=== PATIENT | female | born 1995 | race Two or more races ===

== ENCOUNTER 2018-07-12 17:15 | Inpatient (IN) | payer OTHER ==
[2018-07-12] MEDS ORDERED: AMPICILLIN SODIUM 2 GM VIAL ONE (18:07)
[2018-07-12] MEDS ORDERED: ELECTROLYTE-148 SOLN 500 ML IV ONE ×2 (18:10→19:10)
[2018-07-12 19:06] LABS: BASO % 0.2 % (0-2.0); HEMATOCRIT 35.3 % (32.4-45.2); HEMOGLOBIN 11.6 GM/dL (10.7-15.3); LYMPH % 15.5 % (8-40); MCH 27.3 pg (25.7-33.7); MCHC 32.9 g/dl (32.0-36.0); MEAN CELL VOLUME 83.1 fl (80-96); MONO % 6.9 % (3.8-10.2); NEUT % 73.4 % (42.8-82.8); PLATELET COUNT 315 K/MM3 (134-434); RBC 4.25 M/mm3 (3.60-5.2); RDW 14.8 % (11.6-15.6); WHITE BLOOD COUNT 10.3 K/mm3 (4.0-10.0)
[2018-07-12 19:14] LABS: INR 0.92 (0.83-1.09); PROTHROMBIN TIME (PATIENT) 10.8 SEC (9.7-13.0)
[2018-07-12 19:17] LABS: ACTIVATED PTT 30.5 SECONDS (25.2-36.5)
[2018-07-12 19:29] LABS: BILIRUBIN,TOTAL 0.3 mg/dL (0.2-1); CALCIUM 8.8 mg/dL (8.5-10.1); CREATININE 0.5 mg/dL (0.55-1.3); POTASSIUM 4.2 mmol/L (3.5-5.1); TOT PROT 7.4 g/dl (6.4-8.2)
[2018-07-12 20:06] LABS: EPI CELLS 2.7 /HPF (0-5/HPF); PH,URINE 6.5 (5.0-8.0); URINE APPEARANCE CLEAR; URINE BACTERIA 13.2 /hpf (NEGATIVE); URINE BILIRUBIN NEGATIVE (NEGATIVE); URINE CASTS 7 /lpf (0-8); URINE COLOR YELLOW; URINE GLUCOSE (UA) NEGATIVE (NEGATIVE); URINE KETONE NEGATIVE (NEGATIVE); URINE LEUK ESTERASE 1+ (NEGATIVE); URINE NITRITE NEGATIVE (NEGATIVE); URINE PROTEIN NEGATIVE (NEGATIVE); URINE RBC 2 /hpf (0-4); URINE UROBILINOGEN 0.2 mg/dL (0.2-1.0); URINE WBC 12 /hpf (0-5)
[2018-07-12 20:45] LABS: METHADONE, UR NEGATIVE ng/ml (CUTOFF=300); OPIATES, URI NEGATIVE ng/ml (CUTOFF=300); PHENCYCLIDINE,URINE NEGATIVE ng/ml (CUTOFF=25); URINE BARBITURATES NEGATIVE ng/ml (CUTOFF=200); URINE BENZODIAZEPINES NEGATIVE ng/ml (CUTOFF=200)
[2018-07-12 20:46] LABS: COCAINE, UR NEGATIVE ng/ml (CUTOFF=300); URINE AMPHETAMINES NEGATIVE ng/ml (CUTOFF=500)
[2018-07-12] MEDS ORDERED: AMPICILLIN - 2 GM in SODIUM CHLORIDE 100 ML IVPB ONE (21:00)
[2018-07-12 22:29] VITALS: BMI 31.8
[2018-07-12] MEDS ORDERED: BUTORPHANOL TARTRATE 2 MG/ML VIAL ONE (22:46)
[2018-07-12] MEDS ORDERED: PROMETHAZINE HCL 25 MG/1 ML VIAL ONE (22:46)
[2018-07-12] MEDS ORDERED: BUTORPHANOL TARTRATE 1 MG/ML VIAL IVPB ONE (23:01)
[2018-07-12] MEDS ORDERED: PROMETHAZINE HCL 25 MG/1 ML VIAL IVPUSH ONE (23:01)
--- NOTE | 2018-07-12 23:01 | HP ---
Admitting History and Physical - Admission Chief Complaint: labor pains History of Present Illness: 22 y/o primip comes for labor eval and is 4-5 cm, ctx irregular. No issues and doing well, gbs proph given.. states she is a pt of an off site clinic. 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: Alzheimer's, CVA, Dementia, Migraine, Multiple Sclerosis, Peripheral Neuropathy, Parkinson's, Seizure, Syncope, TIA, Vertigo, Other Cardiovascular: No: AFIB, Aneurysm, Aortic Insufficiency, Aortic Stenosis, CAD, CHF, Deep Vein Thrombosis, HTN, Hyperlipdemia, MT, Mitral Insufficiency, Mitral Stenosis, Murmur, Pulmonary Hypertension, Other Pulmonary: No: Asthma, Bronchitis, Cancer, COPD, O2 Dependent, Pneumonia, Previously Intubated, Pulmonary Embolus, Pulmonary Fibrosis, Sleep Apnea, Other Gastrointestinal: No: Ascites, Cancer, Constipation, Crohn's Disease, Diverticulitis, Diverticulosis, Esophageal Varices, Gastritis, GERD, GI Bleed, Hemorrhoids, Hiatal Hernia, Inflamatory Bowel Disease, Irritable Bowel Disease, Pancreatitis, Peptic Ulcer Disease, Ulcerative Colitis, Other Hepatobiliary: No: Cirrhosis, Cholelithiasis, Cholecystitis, Choledocholithiasis , Hepatitis A, Hepatitis B, Hepatitis C, Other Renal/: No: Renal Failure, Renal Inusuff, BPH, Cancer, Hematuria, Hemodialysis , Neurogenic Bladder, Renal Calculi, UTI, Other Reproductive: No: Ectopic , Endometriosis, Fibroids, PID, Polycystic Ovary Syndrome, Postmenopausal, Other ...: 1 ...Para: 0 Heme/Onc: No: Anemia, B12 Deficiency, Bleeding Disorder, Cancer, Current Chemotherapy, Current Radiation Therapy, Hemochromatosis, Hypercoaguable State, Myeloproliferative Synd, Sickle Cell Disease, Sickle Cell Trait, Thrombocytopenia, Other Infectious Disease: No: AIDS, C-Diff, Herpes Zoster, HIV, MRSA, STD's, Tuberculosis, VREF, Other Psych: No: Addictions, Anxiety, Bipolar, Depression, Panic, Psychosis, Schizophrenia, Other Musculoskeletal: No: Bursitis, Chronic low back pain, Hemiparesis, Hemiplegia, Osteoarthritis, Paraplegia, Other Rheumatology: No: Fibromyalgia, Gout, Lupus, Rheumatoid Arthritis, Sarcoidosis, Vasculitis, Other ENT: No: Allergic Rhinitis, Sinusitis, Other Endocrine: No: Remi's Disease, Rosette's Disease, Diabetes Insipidus, Diabetes Mellitus, Hyperparathyroidism, Hyperthyroidism, Hypothyroidism, Osteopenia, SIADH, Other Dermatology: No: Basal Cell, Cellulitis, Eczema, Melanoma, Psoriasis, Squamous Cell, Other - Smoking History Smoking history: Never smoked Have you smoked in the past 12 months: No - Alcohol/Substance Use Hx Alcohol Use: No Home Medications - Allergies Allergies/Adverse Reactions: Allergies Allergy/AdvReac Type Severity Reaction Status Date / Time No Known Allergies Allergy Verified 07/12/18 18:32 - Home Medications Home Medications: Ambulatory Orders Tablet 1 tab PO DAILY 07/12/18 Review of Systems - Review of Systems Constitutional: reports: No Symptoms Eyes: reports: No Symptoms HENT: reports: No Symptoms Neck: reports: No Symptoms Cardiovascular: reports: No Symptoms Respiratory: reports: No Symptoms Gastrointestinal: reports: No Symptoms Genitourinary: reports: No Symptoms Breasts: reports: No Symptoms Reported Musculoskeletal: reports: No Symptoms Integumentary: reports: No Symptoms Neurological: reports: No Symptoms Endocrine: reports: No Symptoms Hematology/Lymphatic: reports: No Symptoms Physical Examination Vital Signs: Vital Signs Temperature 98.4 F 07/12/18 22:00 Pulse Rate 65 07/12/18 22:00 Respiratory Rate 20 07/12/18 22:00 Blood Pressure 123/61 07/12/18 22:00 O2 Sat by Pulse Oximetry (%) Constitutional: Yes: Well Nourished Eyes: Yes: WNL HENT: Yes: WNL Neck: Yes: WNL Cardiovascular: Yes: WNL Respiratory: Yes: WNL Gastrointestinal: Yes: WNL ...Rectal Exam: Yes: WNL Renal/: Yes: WNL Breast(s): Yes: WNL Musculoskeletal: Yes: WNL Integumentary: Yes: WNL Neurological: Yes: WNL Labs: CBC, BMP 07/12/18 18:20 07/12/18 18:20 Assessment/Plan as above will admit abx expectant management
[2018-07-12] MEDS ORDERED: ELECTROLYTE-148 SOLN 1,000 ML IV SCH (23:15)
[2018-07-13] MEDS: AMPICILLIN - 1 GM in SODIUM CHLORIDE 100 ML IVPB SCH ×2 (01:00→06:05)
[2018-07-13] MEDS ORDERED: AMPICILLIN SODIUM 1 GM VIAL ONE (01:14)
[2018-07-13] MEDS ORDERED: BUTORPHANOL TARTRATE 1 MG/ML VIAL IVPB ONE (02:30)
[2018-07-13] MEDS ORDERED: PROMETHAZINE HCL 25 MG/1 ML VIAL IVPB ONE (02:30)
[2018-07-13] MEDS ORDERED: BUTORPHANOL TARTRATE 2 MG/ML VIAL ONE (02:43)
[2018-07-13] MEDS ORDERED: PROMETHAZINE HCL 25 MG/1 ML VIAL ONE (02:43)
[2018-07-13] MEDS ORDERED: LIDOCAINE HCL 1% PRESERVATIVE FREE - 30ML VIAL ONE (03:06)
[2018-07-13] MEDS ORDERED: OXYTOCIN 20 UNITS in 0.9% NS 20 UNIT/1,000 ML INFUS.BAG IV ONE (03:06)
--- NOTE | 2018-07-13 04:11 | PN ---
Ante-Partal Exam - Subjective Vital Signs: Vital Signs Temperature 98.4 F 07/13/18 02:00 Pulse Rate 78 07/13/18 03:00 Respiratory Rate 20 07/13/18 03:00 Blood Pressure 124/58 L 07/13/18 03:00 O2 Sat by Pulse Oximetry (%) Headache: No Visual changes: No Right upper quadrant pain: No - Contractions Contractions: Yes Regularity: Regular Intensity: Mild/Mod Monitor Mode: External - Exam during Labor Category: I Monitor Accelerations: Present Monitor Decelerations: None Exam: Vaginal Dilatation (cm): 10 Effacement (%): 100 Amniotic Membrane Status: Intact Nitrazine Test: Positive Amniotic Fluid: Clear Presentation: Vertex Station: 0 - Assessment/Plan Assessment/Plan: as above [id number]
--- NOTE | 2018-07-13 04:42 | PN ---
Ante-Partal Exam - Subjective Vital Signs: Vital Signs Temperature 98.4 F 07/13/18 02:00 Pulse Rate 94 H 07/13/18 04:00 Respiratory Rate 20 07/13/18 04:00 Blood Pressure 134/78 07/13/18 04:00 O2 Sat by Pulse Oximetry (%) Headache: No Visual changes: No Right upper quadrant pain: No - Contractions Contractions: No Regularity: Regular Intensity: Mild/Mod Monitor Mode: External - Exam during Labor Heart Rate: 150 Variability: Moderate Category: I Monitor Accelerations: Present Monitor Decelerations: None Exam: Vaginal Dilatation (cm): 10 Effacement (%): 100 Amniotic Membrane Status: Ruptured Nitrazine Test: Positive Amniotic Fluid: Clear Presentation: Vertex Station: 0 (pt to start pushing)
[2018-07-13] MEDS ORDERED: BISACODYL 10 MG SUPP.RECT RC PRN (05:03)
[2018-07-13] MEDS ORDERED: WITCH HAZEL 50% (TUCKS) 40 PAD/JAR PAD TP PRN (05:03)
[2018-07-13] MEDS ORDERED: BENZOCAINE 28 GM HEMORRHOIDAL OINTMENT TP PRN (05:03)
[2018-07-13] MEDS ORDERED: ACETAMINOPHEN 325 MG TABLET (FP) PO PRN (05:03)
[2018-07-13] MEDS ORDERED: BENZOCAINE 20% 57 GM BOTTLE TP PRN (05:03)
[2018-07-13] MEDS ORDERED: METHYLERGONOVINE MALEATE 0.2 MG/1 ML AMP IM PRN (05:03)
[2018-07-13] MEDS ORDERED: IBUPROFEN 600 MG TABLET (FP) PO PRN (05:03)
--- NOTE | 2018-07-13 05:04 | PN ---
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
[2018-07-13] MEDS ORDERED: OXYTOCIN 20 UNITS in 0.9% NS 20 UNIT/1,000 ML INFUS.BAG IV SCH (05:15)
[2018-07-13] MEDS ORDERED: TUBERCULIN PPD 5 TU/0.1ML SYRINGE (IN PATIENT USE ONLY) ID ONE (10:00)
[2018-07-14 04:11] LABS: HBsAG SCREEN Negative (Negative)
[2018-07-14 07:14] LABS: RUBELLA IgG ANTIBODY 9.07 index (Immune >0.99)
--- NOTE | 2018-07-14 07:52 | PN ---
Post Progress Note Type of Delivery: Vital Signs: Vital Signs Temperature 98.0 F 07/14/18 06:00 Pulse Rate 65 07/14/18 06:00 Respiratory Rate 18 07/14/18 06:00 Blood Pressure 131/57 L 07/14/18 06:00 O2 Sat by Pulse Oximetry (%) Uterus: Yes: Fundus Firm Incision: Yes: Dressing dry and intact Abdomen/GI: Yes: Abdomen soft Lochia: Yes: Rubra Lochia, amount: Small Extremities: Yes: Calves non-tender Perineum: Yes: Intact Activity: Ambulating - Labs Labs: CBC WBC 10.3 K/mm3 (4.0-10.0) H 07/12/18 18:20 RBC 4.25 M/mm3 (3.60-5.2) 07/12/18 18:20 Hgb 11.6 GM/dL (10.7-15.3) 07/12/18 18:20 Hct 35.3 % (32.4-45.2) 07/12/18 18:20 MCV 83.1 fl (80-96) 07/12/18 18:20 MCH 27.3 pg (25.7-33.7) 07/12/18 18:20 MCHC 32.9 g/dl (32.0-36.0) 07/12/18 18:20 RDW 14.8 % (11.6-15.6) 07/12/18 18:20 Plt Count 315 K/MM3 (134-434) 07/12/18 18:20 MPV 8.0 fl (7.5-11.1) 07/12/18 18:20 Absolute Neuts (auto) 7.6 K/mm3 (1.5-8.0) 07/12/18 18:20 Neutrophils % 73.4 % (42.8-82.8) 07/12/18 18:20 Lymphocytes % 15.5 % (8-40) 07/12/18 18:20 Monocytes % 6.9 % (3.8-10.2) 07/12/18 18:20 Eosinophils % 4.0 % (0-4.5) 07/12/18 18:20 Basophils % 0.2 % (0-2.0) 07/12/18 18:20 Nucleated RBC % 0 % (0-0) 07/12/18 18:20 Assessment/Plan 22yo s/p , PPD#1 Routine PP care OOB, ambulate Labs pending Anticipate d/c to home PPD#2 Marcy Toney MD
[2018-07-14 08:08] LABS: BASO % 0.2 % (0-2.0); EOS % 4.2 % (0-4.5); HEMOGLOBIN 10.1 GM/dL (10.7-15.3); LYMPH % 21.8 % (8-40); MCH 27.1 pg (25.7-33.7); MCHC 32.6 g/dl (32.0-36.0); MEAN PLT VOLUME 7.8 fl (7.5-11.1); MONO % 7.6 % (3.8-10.2); NEUT % 66.2 % (42.8-82.8); PLATELET COUNT 263 K/MM3 (134-434); RBC 3.73 M/mm3 (3.60-5.2); RDW 14.6 % (11.6-15.6); WHITE BLOOD COUNT 8.3 K/mm3 (4.0-10.0)
[2018-07-14] MEDS: AMPICILLIN - 1 GM in SODIUM CHLORIDE 100 ML IVPB SCH (21:37)
[2018-07-14] MEDS ORDERED: SENNOSIDES/DOCUSATE COMBO (SENNA PLUS) TABLET (UD) PO PRN (22:00)
[2018-07-14 22:58] VITALS: PULSE 74
[2018-07-15 08:07] VITALS: BP 118/63; TEMP 98.2
--- NOTE | 2018-07-15 08:43 | DS ---
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 Vital Signs: Vital Signs Temperature 98.2 F 07/15/18 08:01 Pulse Rate 74 07/15/18 08:01 Respiratory Rate 20 07/15/18 08:01 Blood Pressure 118/63 07/15/18 08:01 O2 Sat by Pulse Oximetry (%) Constitutional: Yes: Well Nourished Eyes: Yes: Conjunctiva Clear HENT: Yes: Atraumatic Neck: Yes: Supple Cardiovascular: Yes: Regular Rate and Rhythm Respiratory: Yes: Regular Gastrointestinal: Yes: Normal Bowel Sounds ...Rectal Exam: Yes: WNL Renal/: Yes: WNL External Genitalia: Yes: Normal Vaginal Exam: Yes: Normal Cervix: Yes: Normal Uterus: Yes: Firm ....Post : Yes: Uterus firm, Moderate lochia serosa Breast(s): Yes: WNL Musculoskeletal: Yes: WNL Extremities: Yes: WNL Neurological: Yes: Alert, Oriented ...Motor Strength: WNL Psychiatric: Yes: Alert, Oriented Labs: CBC, BMP 07/14/18 07:00 07/12/18 18:20 Delivery - Delivery Vaginal Delivery: No Problems Type of Anesthesia: Local Episiotomy/Laceration: None EBL (cc): 300 Delivery, Single - Stages of Labor Date 1st Stage Initiatied: 07/12/18 Time 1st Stage Initiated: 19:00 Date 2nd Stage Initiated: 07/13/18 Time 2nd Stage Initiated: 04:30 Date of Delivery: 07/13/18 Time of Delivery: 04:55 Time Placenta Delivered: 05:00 - Condition of Securities Clerk/Quality Review Trainer Present: No Gender: Male Weight: 7 lb 10 oz Position: Left, OP Total Hours ROM (Hrs/Mins): 40m - 1 Minute Total Score: 9 5 Minutes Total Score: 9 - [place] Feeding Plan Initial Plan: Exclusive throughout hospitalization Discharge Summary Reason For Visit: ADMIT Procedures: Principal: Normal vaginal delivery Hospital Course: Routine care Condition: Stable - Instructions Diet, Activity, Other Instructions: Regular Diet Return to clinic in 4 to 6 weeks for checkup Call [facility] for appointment Referrals: Justyna Toney MD [Staff Physician] - Disposition: HOME - Home Medications Comprehensive Discharge Medication List: Ambulatory Orders Tablet 1 tab PO DAILY 07/12/18 Ibuprofen 600 mg PO Q6H PRN #30 tablet 07/13/18
== END 2018-07-15 13:20 | disposition home or self-care (01) | DRG 560 ==
LOC: JDEL 17:15 → JLDR 20:50 → J3W 07-13 07:40
PROVIDERS: ADMIT Obstetrics & Gynecology; ATTEND Obstetrics & Gynecology
PROC: 10E0XZZ Delivery of Products of Conception, External Approach (ICD-10-PCS; principal; 2018-07-13)
DX: O80 Encounter for full-term uncomplicated delivery (principal); Z3A.39 39 weeks gestation of pregnancy; Z37.0 Single live birth
CPT/HCPCS: 36415; 59409; 80053; 80307; 81003; 85025; 85610; 85730; 86593; 86762; 86850; 86900; 86901; 87340; 87389